=== PATIENT | male | born 2005 | race Caucasian/White ===

== ENCOUNTER 2024-05-10 15:57 | Outpatient (RCR) | payer BC, SELFPAY ==
--- NOTE | 2024-05-10 17:10 | OPREHPOC ---
Outpatient Therapy Plan of Care This is a Multidisciplinary Plan of Care that may contain components documented by all disciplines (PT, OT, and ST.) PT Problem 1 PT Problem #1 Knowledge Deficit PT Goal 1 Goal / Goal Update 1. independent and compliant Target Visit 6 PT Problem 2 PT Problem #2 Pain PT Goal 1 Goal / Goal Update 1. patient to return to pain free movement and activity. 2. no radicular symptoms in the R LE. Target Visit 12 PT Problem 3 PT Problem #3 Impaired Range of Motion PT Goal 1 Goal / Goal Update 1. 100% arom lumbar mobility without pain Target Visit 12 PT Problem 4 PT Problem #4 Impaired Strength PT Goal 1 Goal / Goal Update 1. 5/5 bilateral hip strength 2. 4/5 or better core strength Target Visit 12 PT Problem 5 PT Problem #5 Impaired Functional Mobil PT Goal 1 Goal / Goal Update 1. LEFS to display 0% functional deficits 2. patient to stand, sit, walk without limitations or pain 3. patient to safely squat and lift 40lbs from floor to waist level Target Visit 12
--- NOTE | 2024-05-10 17:10 | PTOPEVAL1 ---
Assessment and note entered by [facility] [employer], PT Evaluation Information Assessment Status Evaluation ICD-10 Condition Codes (PT) Pain in right hip M25.551 Onset 03/23/24 Subjective Information patient reports he has been having pain in the R hip since march of this year. he reports he had no injury. he reports he woke up with pain in the R hip one day. he reports the pain is different at times, but can be sharp. he reports getting in and out of his car he notices sharp pain in the R hip. he reports he does get symptoms down to the R knee at times as well. he reports he was put on meloxicam, and the pain down to his knee has reduced in severity and frequency. he reports he has increased pain with sitting down to a chair, sneezing/coughing without weight on the leg. he reports he has to put pressure/weight on the leg to help reduce pain. he reports he does this by pushing on the leg with his arm. he reports the pain is in the lateral hip right at his pants line . he reports it move from there across the front of the thigh and down to the R knee. 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 Reported Pain Level Pain Score 2: Self Report Assessment PT Clinical Summary mr. [email or web address] is a 18 yo man who presents to skilled PT services to evaluation and treatment of R hip pain. he presents today with positive special testing of the R hip and R lower back. he also displays pain with PA glides of the lumbar spine, no tenderness around the R hip, antalgia favoring the R hip, and radicular symptoms into the R LE. 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 he would benefit from continued skilled PT to address his objective/functional deficits and return to prior level functional activity performance/quality of life. Plan of Care Interventions Electrical Stimulation,Gait Training,Hot Pack/Cold Pack,Manual Therapy,Mechanical Traction,Neuro Re- education,Patient/Caregiver Educati,Therapeutic Activities,Therapeutic Exercise PT Services Indicated Yes Treatment Frequency and 2x weekly for 10 visits Duration These treatments will address the objective and functional deficits as defined above. The patient will be advanced safely and appropriately in order for the patient to progress towards his/her prior level of function. Additional exercises will be introduced and as well as a comprehensive home exercise program upon discharge, if needed, ?to ensure carryover of functional gains achieved in the clinic. This treatment plan has been reviewed and agreement upon by the patient.
== END 2024-05-18 16:45 | disposition home or self-care (01) ==
LOC: CHSPT 15:57
DX: M25.551 Pain in right hip (principal)
CPT/HCPCS: 97014; 97110; 97140; 97161; G0283